=== PATIENT | male | born 1960 | race Caucasian/White ===

== ENCOUNTER 2016-10-03 20:16 | Emergency (ER) | payer OTHER ==
[~2016-10-03] VITALS: Ht 167.6 cm; Wt 88.9 kg
[2016-10-03 20:16] VITALS: BP_SYST 140
--- NOTE | 2016-10-03 20:28 | NUR ---
PT C/O COUGH AND CONGESTION FOR 2WKS AND COUGHED UP BLOOD FOR DAYS, N/V X2 TIMES, RIGHT NOW HAS BODY ACHES /10. NO SOB OR DISTRESS. AFEBRILE. SAFETY PRECAUTIONS IN PLACE, WILL CONTINUE TO MONITOR.
--- NOTE | 2016-10-03 20:28 | NUR ---
ER Dr. LING at bedside examining patient.
--- NOTE | 2016-10-03 20:30 | NUR ---
Patient to ER bed 5 to gown for evaluation. Side rails up. Report given to MEDINA PALOMO.
--- NOTE | 2016-10-03 20:35 | NUR ---
ER at bedside examining patient.
[2016-10-03 21:01] LABS: HEMATOCRIT 43.2 % (36-54); HEMOGLOBIN 14.6 g/dL (14.0-18.0); MEAN CORPUSCULAR HEMOGLOBIN 28 pg (27-31); MEAN CORPUSCULAR HGB CONC 34 % (32-36); MEAN CORPUSCULAR VOLUME 83 fL (79.0-98.0); PLATELET COUNT (AUTO) 173 K/uL (130-430); RED BLOOD CELL COUNT(AUTO) 5.21 MIL/uL (4.2-6.2); RED CELL DISTRIBUTION WIDTH 13.1 % (9.0-15.0)
[2016-10-03 21:13] LABS: CALCIUM 9.1 mg/dL (8.4-11.0); CREATININE 1.1 mg/dL (0.55-1.30); POTASSIUM 3.7 mmol/L (3.5-5.1)
[2016-10-03 21:17] LABS: PROTHROMBIN TIME 10.9 SECS (9.5-12.5)
[2016-10-03 21:18] LABS: ALBUMIN 4.3 g/dL (3.4-4.8); TOTAL BILIRUBIN 0.5 mg/dL (0.0-1.0); TOTAL PROTEIN, SERUM 7.5 g/dL (6.4-8.3)
[2016-10-03] MEDS ORDERED: KETOROLAC TROMETHAMINE 60 MG/2 ML VIAL IM ONE (21:45)
[2016-10-03] MEDS ORDERED: IPRATROPIUM/ALBUTEROL SULFATE 3 ML AMPUL.NEB INH ONE (21:45)
[2016-10-03] MEDS ORDERED: DEXAMETHASONE SOD PHOSPHATE 10 MG/ML VIAL IM ONE (21:45)
[2016-10-03 21:48] LABS: BAND % (MANUAL) 3 % (0-6); BASOPHILS % (MANUAL) 0 % (0-2); EOSINOPHILS % (MANUAL) 22 % (0-7); LYMPHOCYTES % (MANUAL) 15 % (20-46); MONOCYTES % (MANUAL) 6 % (0-11)
[2016-10-03 22:35] VITALS: BP_SYST 140
--- NOTE | 2016-10-03 22:35 | NUR ---
Patient given written and verbal discharge instructions and verbalizes understanding. ER MD DR. LING discussed with patient the results and treatment provided. Patient in stable condition. ID arm band removed. Rx of AZITHROMYCIN AND TESSALON given. Patient educated on pain management and to follow up with PMD. Pain Scale 0/10, PT STATES HE FEELS MUCH BETTER, AMBULATED W/ STEADY GAIT. Opportunity for questions provided and answered.
== END 2016-10-03 22:35 | disposition home or self-care (01) ==
LOC: SED 20:16
DX: J20.9 Acute bronchitis, unspecified (principal)
CPT/HCPCS: 36415; 71010; 80053; 85007; 85027; 85610; 85730; 94640; 96372; 99285; J1100; J1885